=== PATIENT | female | born 1980 | race African-American/Black ===

== ENCOUNTER 2018-01-28 17:17 | Emergency (ER) | payer OTHER ==
[~2018-01-28] VITALS: Ht 185.4 cm; Wt 129.0 kg
[~2018-01-28 17:17] MED LIST: METO10TA3; PYRI50TA9
[2018-01-28 17:22] VITALS: BP 146/95
== END 2018-01-28 22:45 | disposition left against medical advice (07) ==
LOC: ER 17:17
DX: R07.9 Chest pain, unspecified (principal); Z53.21 Procedure and treatment not carried out due to patient leaving prior to being seen by health care provider
CPT/HCPCS: 93005